=== PATIENT | female | born 1980 ===

== ENCOUNTER → 2024-01-08 | Outpatient (CLI) | payer BC ==
[2024-01-08 12:30] LABS: Basophils # (auto) 0 10 ^3/uL (0-0.2); Basophils % (auto) 0.4 % (0.0-2.0); Eosinophils # (auto) 0 10 ^3/uL (0-0.8); Eosinophils % (auto) 0.4 % (0.0-7.0); Hematocrit 36.5 % (36.0-46.0); Hemoglobin 12.1 g/dL (12.2-16.2); Lymphocytes # (auto) 1.1 10 ^3/uL (0.4-5.4); Mean Corpuscular Hgb Conc. 33.2 g/dL (32.0-36.0); Mean Corpuscular Volume 84.3 fL (80.0-100.0); Monocytes # (auto) 0.5 10 ^3/uL (0-1.3); Monocytes % (auto) 5.1 % (0.0-12.0); Neutrophils # (auto) 8.1 10 ^3/uL (1.6-8.6); Neutrophils % (auto) 83.1 % (37.0-80.0); Red Blood Cells 4.33 10^6/uL (4.0-5.20); Red Cell Distribution Width 14.9 % (11.8-14.3); White Blood Cell 9.7 10^3/uL (4.4-10.8)
[2024-01-08 12:52] LABS: Amphetamine Screen, Urine Neg (NEGATIVE)
[2024-01-08 12:53] LABS: Barbiturate Scree,Urine Neg (NEGATIVE)
[2024-01-08 12:54] LABS: Benzodiazephine Screen, Urine Neg (NEGATIVE); Cannabinoid Screen, Urine Neg (NEGATIVE); Cocaine Screen, Urine Neg (NEGATIVE); Opiate Scree,Urine Neg (NEGATIVE); Phencyclidine Screen, Urine Neg (NEGATIVE)
[2024-01-09 07:06] LABS: RPR Non Reactive (Non Reactive)
[2024-01-10 14:07] LABS: QuantiFERON-TB Gold Plus Negative (Negative)
== END | disposition home or self-care (01) ==
LOC: LAB 11:42
PROVIDERS: ATTEND Obstetrics & Gynecology
DX: O09.90 Supervision of high risk pregnancy, unspecified, unspecified trimester (principal); Z3A.00 Weeks of gestation of pregnancy not specified
CPT/HCPCS: 36415; 80307; 81025; 83036; 84702; 85025; 86592; 86703; 86762; 86850; 86900; 86901; 87086; 87340